=== PATIENT | female | born 1960 | race Caucasian/White ===

== ENCOUNTER → 2017-08-22 | Outpatient (CLI) | payer MEDICAID ==
--- NOTE | 2017-08-22 12:00 | US ---
EXAMINATION TYPE: US abdomen complete DATE OF EXAM: 08/22/2017 COMPARISON: NONE CLINICAL HISTORY: R10.11 Rt Upper Quad Pain. RUQ pain with nausea EXAM MEASUREMENTS: Liver Length: 15.3 cm Gallbladder Wall: 0.2 cm CBD: 0.4 cm Spleen: 10.8 cm Right Kidney: 9.3 x 3.3 x 3.7 cm Left Kidney: 10.2 x 3.9 x 4.9 cm Pancreas: tail obscured by bowel has Liver: wnl Gallbladder: tiny echogenic foci may represent polyp versus small stone, non mobile Evidence for sonographic Bautista's sign: no CBD: wnl Spleen: wnl Right Kidney: wnl Left Kidney: wnl Upper IVC: wnl Abd Aorta: wnl The liver is homogenous. The intrahepatic portion of the IVC and proximal abdominal aorta are within normal limits. Common bile duct is unremarkable. The visualized portions of the pancreas are homoge nous. The spleen is unremarkable. Kidneys are symmetric and free of hydronephrosis. No renal lesio ns are seen. IMPRESSION: 1. Nonmobile mild 3 mm dependent nonshadowing intraluminal gallbladder echogenic foci likely relate t o gallbladder polyps versus small choleliths. Annual follow-up examination is recommended for surveil kait. 2. No sonographic evidence of acute cholecystitis.
== END | disposition home or self-care (01) ==
LOC: RADUSWWP 09:48
PROVIDERS: ATTEND Family Medicine
DX: R93.5 Abnormal findings on diagnostic imaging of other abdominal regions, including retroperitoneum (principal); R10.11 Right upper quadrant pain
CPT/HCPCS: 76700

== ENCOUNTER → 2017-08-28 | Outpatient (CLI) | payer MEDICAID ==
--- NOTE | 2017-08-29 10:52 | MM ---
Reason for exam: screening (asymptomatic). Last mammogram was performed 1 year and 1 month ago. History: Patient had first child at age 36. Benign right mammotome panel of the right breast, August 12, 2008. Benign excisional biopsy of the right breast, May 21, 2001. 4 excisional biopsies of the left breast. Excisional biopsy of the right breast. Took hormonal contraceptives for 18 years. Physical Findings: A clinical breast exam by your physician is recommended on an annual basis and results should be correlated with mammographic findings. MG Screening Mammo w CAD Bilateral CC and MLO view(s) were taken. Prior study comparison: August 11, 2016, bilateral MG screening mammo w CAD. August 03, 2015, bilateral MG screening mammo w CAD. The breast tissue is extremely dense which could obscure a lesion on mammography. Stable benign calcifications. There is chronic nodularity bilaterally. There is no dominant lesion. No significant changes when compared with prior studies. ASSESSMENT: Benign, BI-RAD 2 RECOMMENDATION: Routine screening mammogram of both breasts in 1 year.
== END | disposition home or self-care (01) ==
LOC: RADMAMWWP 07:07
PROVIDERS: ATTEND Family Medicine
DX: Z12.31 Encounter for screening mammogram for malignant neoplasm of breast (principal)

== ENCOUNTER → 2019-09-01 | Outpatient (CLI) | payer MEDICAID ==
[2019-09-01 07:50] LABS: Basophils # (A) 0.1 k/uL (0-0.2); Basophils % (A) 1 %; Eosinophils # (A) 0.2 k/uL (0-0.7); Eosinophils % (A) 4 %; HCT 39.9 % (34.0-46.0); HGB 13.6 gm/dL (11.4-16.0); Lymphocytes # (A) 1.4 k/uL (1.0-4.8); Lymphocytes % (A) 29 %; MCH 30.2 pg (25.0-35.0); MCHC 34.2 g/dL (31.0-37.0); MCV 88.3 fL (80.0-100.0); Monocytes # (A) 0.3 k/uL (0-1.0); Monocytes % (A) 7 %; Neutrophils # (A) 2.9 k/uL (1.3-7.7); Neutrophils % (A) 58 %; Platelet Count 308 k/uL (150-450); RBC 4.52 m/uL (3.80-5.40); RDW 12.8 % (11.5-15.5)
[2019-09-01 08:11] LABS: ALT 26 U/L (9-52); AST 28 U/L (14-36); African American GFR (CKD) >90 (>60 ml/min/1.73 sqM); Albumin 3.7 g/dL (3.5-5.0); Alkaline Phosphatase 44 U/L (38-126); Anion Gap 3 mmol/L; Blood Urea Nitrogen 13 mg/dL (7-17); Calcium 9.5 mg/dL (8.4-10.2); Carbon Dioxide 31 mmol/L (22-30); Chloride 107 mmol/L (98-107); Cholesterol 211 mg/dL (<200); Glucose 91 mg/dL (74-99); HDL Cholesterol 69 mg/dL (40-60); LDL Cholesterol,Calculated 112 mg/dL (0-99); Non-African American GFR(CKD) >90 (>60 ml/min/1.73 sqM); Potassium 4.3 mmol/L (3.5-5.1); Sodium 141 mmol/L (137-145); Total Bilirubin 0.6 mg/dL (0.2-1.3); Total Protein 5.9 g/dL (6.3-8.2); Triglycerides 152 mg/dL (<150)
--- NOTE | 2019-09-01 08:42 | MM ---
Reason for exam: screening (asymptomatic). Last mammogram was performed 1 year ago. History: Patient had first child at age 36. Benign right mammotome panel of the right breast, August 12, 2008. Benign excisional biopsy of the right breast, May 21, 2001. 4 excisional biopsies of the left breast. Excisional biopsy of the right breast. Took hormonal contraceptives for 18 years. Physical Findings: A clinical breast exam by your physician is recommended on an annual basis and results should be correlated with mammographic findings. MG Screening Mammo w CAD Bilateral CC and MLO view(s) were taken. Prior study comparison: August 29, 2018, bilateral MG screening mammo w CAD. August 28, 2017, bilateral MG screening mammo w CAD. The breast tissue is extremely dense which could obscure a lesion on mammography. There are benign appearing round dystophic calcifications bilaterally. Previous mammotome biopsy in the right breast. There is no discrete abnormality. ASSESSMENT: Benign, BI-RAD 2 RECOMMENDATION: Routine screening mammogram of both breasts in 1 year.
[2019-09-01 09:06] LABS: T4, Free (Free Thyroxine) 0.96 ng/dL (0.78-2.19)
--- NOTE | 2019-09-01 09:47 | BD ---
EXAMINATION TYPE: Axial Bone Density DATE OF EXAM: 09/01/2019 COMPARISON: DEXA bone scan August 03, 2015. CLINICAL HISTORY: Postmenopausal female. height: 65.5 Weight: 190.7 FRAX RISK QUESTIONS: Alcohol (3 or more units per day): no Family History (Parent hip fracture): no Glucocorticoids (More than 3mos): no (Ex: prednisone, prednisolone, methylprednisolone, dexamethasone, and hydrocortisone). History of Fracture in Adulthood: no Secondary Osteoporosis: 1. Type 1 Diabetes: no 2. Hyperthyroidism: no 3. Menopause before 45: no 4. Malnutrition: no 5. Chronic liver disease: no Rheumatoid Arthritis: no Current Tobacco Use: no RISK FACTORS HISTORY OF: Family History of Osteoporosis: no Active: yes Diet low in dairy products/other sources of calcium: yes Postmenopausal woman: Lost more than 2 inches in height since high school: no MEDICATIONS: none Additional History: EXAM MEASUREMENTS: Bone mineral densitometry was performed using the [employer]. Bone mineral density as measured about the Lumbar spine is: ----- L1-L4(G/cm2): 1.220 T Score Values are as follows: ----- L2: 0.2 ----- L3: 0.7 ----- L4: 0.1 ----- L1-L4: 0.3 Bone mineral density has: increased 0.1 % since study of: 08.03.2015 Bone mineral density about the R hip (g/cm2): 1.025 Bone mineral density about the L hip (g/cm2): 1.033 T Score values are as follows: -----R Neck: -0.1 -----L Neck: 0.0 -----R Total: -0.3 -----L Total: -0.1 Bone mineral density has: decreased -0.2 % since study of: 08.03.2015 IMPRESSION: Normal (Values between +1 and -1 indicate normal bone mass). Consider repeating this study in 5 year s or sooner if there is some new clinical indication. NOTE: T-SCORE=SD OF THE YOUNG ADULT MEAN.
== END | disposition home or self-care (01) ==
LOC: RADMAMWWP 06:55
PROVIDERS: ATTEND Family Medicine
DX: Z12.31 Encounter for screening mammogram for malignant neoplasm of breast (principal); Z78.0 Asymptomatic menopausal state; Z01.419 Encounter for gynecological examination (general) (routine) without abnormal findings; Z13.29 Encounter for screening for other suspected endocrine disorder
CPT/HCPCS: 36415; 77067; 77080; 80053; 80061; 84439; 84443; 85025

== ENCOUNTER → 2020-10-12 | Outpatient (CLI) | payer MEDICAID ==
--- NOTE | 2020-10-13 13:35 | MM ---
Reason for exam: screening (asymptomatic). Last mammogram was performed 1 year and 1 month ago. History: Patient had first child at age 36. Family history of breast cancer in sister at age 67. Benign right mammotome panel of the right breast, August 12, 2008. Benign excisional biopsy of the right breast, May 21, 2001. 4 excisional biopsies of the left breast. Excisional biopsy of the right breast. Took hormonal contraceptives for 18 years. Physical Findings: A clinical breast exam by your physician is recommended on an annual basis and results should be correlated with mammographic findings. MG Screening Mammo w CAD Bilateral CC and MLO view(s) were taken. Prior study comparison: September 01, 2019, bilateral MG screening mammo w CAD. August 29, 2018, bilateral MG screening mammo w CAD. The breast tissue is extremely dense which could obscure a lesion on mammography. Finding #1: Stable architectural distortion in the inner quadrant, posterior position of the right breast consistent with known excision changes and left middle posterior central position. Finding #2: There are typically benign dystrophic, round calcifications in both breasts. Previous mammotome biopsy in the right breast. There is no discrete abnormality. ASSESSMENT: Benign, BI-RAD 2 RECOMMENDATION: Routine screening mammogram of both breasts in 1 year.
== END | disposition home or self-care (01) ==
LOC: RADMAMWWP 07:33
PROVIDERS: ATTEND Family Medicine
DX: Z12.31 Encounter for screening mammogram for malignant neoplasm of breast (principal)
CPT/HCPCS: 77067

== ENCOUNTER → 2021-10-13 | Outpatient (CLI) | payer MEDICAID ==
--- NOTE | 2021-10-17 12:21 | MM ---
Reason for exam: screening (asymptomatic). Last mammogram was performed 1 year ago. History: Patient had first child at age 36. Family history of breast cancer in sister at age 67. Benign right mammotome panel of the right breast, August 12, 2008. Benign excisional biopsy of the right breast, May 21, 2001. 4 excisional biopsies of the left breast. Excisional biopsy of the right breast. Took hormonal contraceptives for 18 years. Physical Findings: A clinical breast exam by your physician is recommended on an annual basis and results should be correlated with mammographic findings. MG 3D Screening Mammo W/Cad Bilateral CC and MLO view(s) were taken. Prior study comparison: October 12, 2020, bilateral MG screening mammo w CAD. September 01, 2019, bilateral MG screening mammo w CAD. The breast tissue is extremely dense which could obscure a lesion on mammography. There are benign appearing round calcifications bilaterally. Previous mammotome biopsy in the right breast. Asymmetric breast tissue left upper aspect, stable. There is no discrete abnormality. ASSESSMENT: Benign, BI-RAD 2 RECOMMENDATION: Routine screening mammogram of both breasts in 1 year.
== END | disposition home or self-care (01) ==
LOC: RADMAMWWP 16:00
PROVIDERS: ATTEND Family Medicine
DX: Z12.31 Encounter for screening mammogram for malignant neoplasm of breast (principal); Z80.3 Family history of malignant neoplasm of breast
CPT/HCPCS: 77063; 77067

== ENCOUNTER → 2021-12-05 | Outpatient (CLI) | payer OTHER ==
--- NOTE | 2021-12-05 11:56 | XR ---
Right ankle and right foot HISTORY: Trauma 2 weeks prior and pain, S93.401A S93.601A 3 views of the right foot, 3 views the right ankle Bone mineralization, joint spaces and alignment are maintained within the foot. Multiple ossific densities are present distal to the medial malleolus. There is soft tissue swelling present. Alignment is maintained. There is a plantar calcaneal spur. Enthesophyte present at the inse rtion of the Achilles tendon. There is a small ossific density at the level of the talar neck. IMPRESSION: Correlate for avulsion injury at the medial malleolus, possible chip fracture at the melany r neck. Soft tissue swelling.
== END | disposition home or self-care (01) ==
LOC: RADXRMAIN 11:31
PROVIDERS: ATTEND Emergency Medicine
DX: S99.911A Unspecified injury of right ankle, initial encounter (principal); S99.921A Unspecified injury of right foot, initial encounter; M25.571 Pain in right ankle and joints of right foot; M79.671 Pain in right foot

== ENCOUNTER → 2022-10-16 | Outpatient (CLI) | payer MEDICAID | END | disposition home or self-care (01) | LOC: LABWHC1 08:37 | PROVIDERS: ATTEND Family Medicine | DX: Z53.9 Procedure and treatment not carried out, unspecified reason (principal) ==

== ENCOUNTER → 2022-10-16 | Outpatient (CLI) | payer MEDICAID ==
--- NOTE | 2022-10-16 08:51 | BD ---
EXAMINATION TYPE: Axial Bone Density DATE OF EXAM: 10/16/2022 COMPARISON: 09.01.2019 CLINICAL HISTORY: 61 years year old Female. ICD-10 CODE: Z78.0 POST MENOPAUSAL Height: 65.2 Weight: 205 FRAX RISK QUESTIONS: History of Fracture in Adulthood: YES, 2021 3. Menopause before 45: UNKNOWN RISK FACTORS HISTORY OF: RT ANKLE, 2021, AVULSION FX Postmenopausal woman: ABLATION 2005 UNKNOWN MENOPAUSAL STATE Hyperparathyroidism: NO Adrenal Insufficiency: NO MEDICATIONS: Additional Medications: NOTHING TO NOTE Additional History: NOTHING ADDITIONAL TO NOTE EXAM MEASUREMENTS: Bone mineral densitometry was performed using the [employer] System. Bone mineral density as measured about the Lumbar spine is: ----- L1-L4(G/cm2): 1.199 T Score Values are as follows: ----- L1: 0.2 ----- L2: -0.5 ----- L3: 0.4 ----- L4: 0.3 ----- L1-L4: 0.2 Bone mineral density has: Decreased -1.7% since study of: 09.01.2019 Bone mineral density about the R hip (g/cm2): 0.977 Bone mineral density about the L hip (g/cm2): 1.000 T Score values are as follows: -----R Neck: -0.2 -----L Neck: -0.6 -----R Total: -0.2 -----L Total: -0.1 Bone mineral density has: Increased 0.2% since study of: 09.01.2019 FRAX%s: The graph provided illustrates a 10.7% chance for a major osteoporotic fx and a 0.4% chance f or the hips probability for fx in 10 years time. IMPRESSION: Normal (Values between +1 and -1 indicate normal bone mass). Consider repeating this study in 5 year s or sooner if there is some new clinical indication. NOTE: T-SCORE=SD OF THE YOUNG ADULT MEAN.
[2022-10-16 14:52] LABS: Basophils # (A) 0.07 X 10*3/uL (0.00-0.10); Basophils % (A) 1.3 %; Eosinophils # (A) 0.13 X 10*3/uL (0.04-0.35); Eosinophils % (A) 2.4 %; HCT 42.7 % (37.2-46.3); HGB 13.7 g/dL (12.0-15.0); Immature Grans, Automated 0.4 %; Lymphocytes # (A) 1.31 X 10*3/uL (0.90-5.00); Lymphocytes % (A) 24.5 %; MCH 28.6 pg (27.0-32.0); MCHC 32.1 g/dL (32.0-37.0); MCV 89.1 fL (80.0-97.0); Mean Platelet Volume 10.4 fL (9.5-12.2); Monocytes # (A) 0.47 X 10*3/uL (0.20-1.00); Monocytes % (A) 8.8 %; NRBC Per 100 WBC 0 /100 WBCS (0.0-0.0); Neutrophils # (A) 3.34 X 10*3/uL (1.80-7.70); Neutrophils % (A) 62.6 %; Platelet Count 255 X 10*3/uL (140-440); RBC 4.79 X 10*6/uL (4.10-5.20); RDW 13.3 % (11.5-14.5); WBC 5.34 X 10*3/uL (4.50-10.00)
[2022-10-16 16:29] LABS: ALT 23 U/L (8-44); AST 24 U/L (13-35); African American GFR (CKD) 92.6 (60.0-200.0); Albumin 4.5 g/dL (3.8-4.9); Albumin/Globulin Ratio 2.62 (1.60-3.17); Alkaline Phosphatase 70 U/L (41-126); BUN/Creat Ratio 12.76 Ratio (12.00-20.00); Blood Urea Nitrogen 10.3 mg/dL (9.0-27.0); Calcium 9.6 mg/dL (8.7-10.3); Carbon Dioxide 28.1 mmol/L (20.0-27.5); Chloride 103 mmol/L (96-109); Globulin 1.7 g/dL (1.6-3.3); Glucose 96 mg/dL (70-110); Non-African American GFR(CKD) 79.9 (60.0-200.0); Potassium 4.9 mmol/L (3.5-5.5); Sodium 142 mmol/L (135-145); Total Protein 6.2 g/dL (6.2-8.2)
[2022-10-16 16:30] LABS: Chol/HDL Ratio 5.34 Ratio; LDL Cholesterol,Calculated 175.4 mg/dL (0.0-131.0)
--- NOTE | 2022-10-17 08:49 | MM ---
Reason for Exam: Screening (asymptomatic). Last screening mammogram was performed 12 month(s) ago. Patient History: Menarche at age 12. First Full-Term at age 36. Late child-bearing (after 30). Patient used Hormonal Contraceptives for 18 years. Excisional Biopsy on the Right side. Excisional Biopsy on the Left side. Excisional Biopsy on the Left side. Excisional Biopsy on the Left side. Excisional Biopsy on the Left side. 08/12/2008, Benign Core Biopsy on the right side. 05/21/2001, Benign Excisional Biopsy on the right side. Sister had breast cancer, age 67. Risk Values: Karis 5 year model risk: 4.6%. NCI Lifetime model risk: 22.8%. Prior Study Comparison: 09/01/2019 Bilateral Screening Mammogram, [facility]. 10/12/2020 Bilateral Screening Mammogram, [facility]. 10/13/2021 Bilateral Screening Mammogram, [facility]. Tissue Density: The breast tissue is heterogeneously dense. This may lower the sensitivity of mammography. Findings: Analyzed By CAD. There is no suspicious group of microcalcifications within the right breast. Increased number of loosely grouped calcifications within the central left breast anterior to middle depth. Slightly more prominent architectural distortion within the cyst central right breast posterior depth and central left breast posterior depth on the CC view. Overall Assessment: Incomplete: need additional imaging evaluation, BI-RAD 0 Management: Diagnostic Mammogram of both breasts. A clinical breast exam by your physician is recommended on an annual basis and results should be correlated with mammographic findings. [facility] will attempt to contact patient to return for supplemental views and ultrasound if indicated. Electronically signed and approved by: Yordy Avelar D.O.
== END | disposition home or self-care (01) ==
LOC: RADMAMWWP 07:49
PROVIDERS: ATTEND Family Medicine
DX: Z12.31 Encounter for screening mammogram for malignant neoplasm of breast (principal); Z78.0 Asymptomatic menopausal state; Z80.3 Family history of malignant neoplasm of breast; Z98.890 Other specified postprocedural states
CPT/HCPCS: 77063; 77067; 77080; 80053; 80061; 84443; 85025

== ENCOUNTER → 2022-10-18 | Outpatient (CLI) | payer MEDICAID ==
--- NOTE | 2022-10-18 08:20 | MM ---
Reason for Exam: Additional evaluation requested from abnormal screening. Last screening mammogram was performed less than 1 month ago. Patient History: Menarche at age 12. First Full-Term at age 36. Late child-bearing (after 30). Patient has history of breast feeding. Patient used Hormonal Contraceptives for 18 years. Excisional Biopsy on the Right side. Excisional Biopsy on the Left side. Excisional Biopsy on the Left side. Excisional Biopsy on the Left side. Excisional Biopsy on the Left side. 08/12/2008, Benign Core Biopsy on the right side. 05/21/2001, Benign Excisional Biopsy on the right side. Maternal cousin had breast cancer under age 50. Sister had breast cancer, age 67. Risk Values: Karis 5 year model risk: 4.6%. NCI Lifetime model risk: 22.8%. Prior Study Comparison: 08/28/2017 Bilateral Screening Mammogram, [facility]. 08/29/2018 Bilateral Screening Mammogram, [facility]. 09/01/2019 Bilateral Screening Mammogram, [facility]. 10/12/2020 Bilateral Screening Mammogram, [facility]. 10/13/2021 Bilateral Screening Mammogram, [facility]. 10/16/2022 Bilateral MG 3D screening mammo w/cad, [facility]. Tissue Density: The breast tissue is heterogeneously dense. This may lower the sensitivity of mammography. Findings: Analyzed By CAD. Grouped calcifications are seen in the left breast 5.0 cm at middle depth posterior nipple line. Distortions in the bilateral breasts compress out and are felt to be related to prior procedural/surgical intervention. Overall Assessment: Suspicious, BI-RAD 4 Management: Stereotactic Core Biopsy of the left breast. A clinical breast exam by your physician is recommended on an annual basis and results should be correlated with mammographic findings. This exam should not preclude additional follow-up of suspicious palpable abnormalities. Results were given to the patient verbally at the time of exam. Electronically signed and approved by: Perfecto Lai DO
== END | disposition home or self-care (01) ==
LOC: RADMAMWWP 07:31
PROVIDERS: ATTEND Family Medicine
DX: R92.8 Other abnormal and inconclusive findings on diagnostic imaging of breast (principal); Z80.3 Family history of malignant neoplasm of breast
CPT/HCPCS: 77062; 77066

== ENCOUNTER 2023-01-08 06:39 | Day surgery (SDC) | payer MEDICAID ==
[~2023-01-08 06:39] MED LIST: Pre Op ABX Message 1 EACH MISC MISCELLANE ONE
[2023-01-08] MEDS ORDERED: DEXAMETHASONE SOD PHOSPHATE 4 MG/ML 1 ML VIAL IV ONE (07:03)
[2023-01-08] MEDS ORDERED: LACTATED RINGERS 1,000 ML IV SCH (07:03)
[2023-01-08] MEDS ORDERED: LIDOCAINE 1% (10MG/ML) FOR IV START INTRADERMA PRN (07:03)
[2023-01-08] MEDS ORDERED: HYDROmorphone 0.5 MG/0.5 ML SYRINGE IVP PRN (07:03)
[2023-01-08] MEDS ORDERED: ONDANSETRON 4 MG/2 ML VIAL IVP ONE (07:03)
--- NOTE | 2023-01-08 07:10 | P.GSHP ---
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 Patient was found have DCIS after mammogram showed calcifications. Family history of breast cancer in her sister. She was seen by oncology. Genetic studies showed a variant of unknown significance. It today for elective surgery in the form of lumpectomy. Past Medical History Past Medical History: Cancer Additional Past Medical History / Comment(s): Restless leg syndrome, Over active bladder History of Any Multi-Drug Resistant Organisms: None Reported Past Surgical History: Section, Uterine Ablation Additional Past Surgical History / Comment(s): fibroadenomas from breast,rt knee arthrscopy Past Anesthesia/Blood Transfusion Reactions: No Reported Reaction Smoking Status: Never smoker - Past Family History Sister(s) Family Medical History: Cancer Additional Family Medical History / Comment(s): breast Medications and Allergies Home Medications Medication Instructions Recorded Confirmed Type rOPINIRole HCL [Requip] 0.5 mg PO DAILY 10/19/22 01/04/23 History ALPRAZolam [Xanax] 0.25 mg PO HS PRN 01/04/23 01/04/23 History Allergies Allergy/AdvReac Type Severity Reaction Status Date / Time No Known Allergies Allergy Verified 01/04/23 15:19 Surgical - Exam Physical exam: General: Well-developed, well-nourished HEENT: Normocephalic, sclerae nonicteric Right breast: Previous scars noted, no masses, no adenopathy Left breast: Previous scars noted, no masses, no adenopathy Abdomen: Nontender, nondistended Extremities: No edema Neuro: Alert and oriented Assessment and Plan (1) Ductal carcinoma in situ of left breast Narrative/Plan: 8-year-old female with recent diagnosis of high-grade DCIS left breast. We'll proceed with left breast wire localization lumpectomy with sentinel lymph node biopsy and injection. Risks of bleeding, infection, scarring, possible need for further surgery, recurrence, seroma, nerve injury, numbness reviewed. She understands and wishes to proceed. Current Visit: Yes Status: Acute Code(s): D05.12 - INTRADUCTAL CARCINOMA IN SITU OF LEFT BREAST SNOMED Code(s): 850824739
[2023-01-08] MEDS ORDERED: ALPRAZolam 0.25 MG TAB ONE (07:35)
[2023-01-08 07:44] VITALS: RESP 16
[2023-01-08] MEDS ORDERED: LIDOCAINE 1% INJ 10MG/ML (20 ML MDV) SQ ONE (08:12)
[2023-01-08] MEDS ORDERED: HEPARIN SODIUM,PORCINE/PF 5,000 UNIT/0.5 ML SYRINGE SQ STA (08:17)
[2023-01-08] MEDS ORDERED: ONDANSETRON 4 MG/2 ML VIAL ONE (08:57)
[2023-01-08] MEDS ORDERED: KETOROLAC 15 MG/ML 1 ML VIAL ONE (09:37)
[2023-01-08] MEDS ORDERED: LIDOCAINE 2% INJ 20 MG/ML (2 ML VIAL) ONE (09:37)
[2023-01-08] MEDS ORDERED: PROPOFOL 10 MG/ML 20 ML VIAL IV ONE (09:37)
[2023-01-08] MEDS ORDERED: fentaNYL (PF) 50 MCG/ML 2 ML AMP ONE (09:37)
[2023-01-08] MEDS ORDERED: MIDAZOLAM 2 MG/2 ML VIAL ONE (09:37)
[2023-01-08] MEDS ORDERED: METHYLENE BLUE 50 MG/10 ML AMPUL MISCELLANE ONE (09:41)
[2023-01-08] MEDS ORDERED: BUPIVACAINE (PF) 0.25% 30 ML VIAL SQ ONE (09:41)
[2023-01-08] MEDS ORDERED: LACTATED RINGERS 1,000 ML IV ONE (11:12)
[2023-01-08] MEDS ORDERED: NALOXONE 0.4 MG/ML 1 ML VIAL IV PRN (11:19)
[2023-01-08] MEDS ORDERED: HYDROcodone/APAP 5-325MG 1 EACH TAB PO PRN (11:19)
--- NOTE | 2023-01-08 11:21 | P.NAPBC ---
NAPBC Queries - NAPBC Queries Was patient's case review presented at [facility] tumor board? If no, comment.: Yes Was patient's pathology reviewed at [facility]? If no, comment.: Yes Was breast conservation surgery offered? If no, comment.: Yes Was sentinel node biopsy offered? If no, comment.: Yes Was diagnosis confirmed by percutaneous core biopsy? If no, comment.: Yes Is patient mastectomy patient?: No Was a preop referral to reconstructive surgeon offered?: Yes Clinical Stage: 0
--- NOTE | 2023-01-08 11:24 | P.OP ---
Date of Procedure: 01/08/23 Procedure(s) Performed: PREOPERATIVE DIAGNOSIS: Left breast cancer POSTOPERATIVE DIAGNOSIS: Same PROCEDURE: Left Breast wire localization lumpectomy with sentinel lymph node biopsy SURGEON: Andrea EBL: Minimal ANESTHESIA: General COMPLICATIONS: None OPERATIVE PROCEDURE: Patient was placed on the operating room table in the supine position. 2 mL of methylene blue was injected into the subareolar space. The breast was then massaged for 5 minutes. The breast was prepped and draped in usual sterile fashion. The left axilla was addressed at that time. The hot spot in the left axilla was identified. A small curvilinear incision was made using the scalpel. Dissection down through the subcutaneous tissues took place using electrocautery. Using the neoprobe I identified a total of 3 sentinel lymph nodes. 2 of these were blue in color. These had benign exam characteristics. These were all removed and sent to pathology for permanent sectioning. The surgical site was inspected and no bleeding was seen. The subcutaneous tissues were closed using 3-0 Vicryl sutures. The skin was closed using 4-0 Monocryl sutures. The wire entrance sites were then addressed. Both wires were entering the breast at the 12 o'clock position directed inferiorly. A periareolar incision was then made and dissection through the subcutaneous tissues took place until we reached the wires entering the subcutaneous tissue. The wires were then brought out through this incision site. A generous lumpectomy around the wires was then performed. As I was dissecting inferiorly and medially I came close I felt to the previous core site. More tissue was taken around this and a single 3-0 Vicryl stitch was later used to reapproximate that flap of tissue. As I was palpating the specimen I felt we were close to the medial and inferior location. I removed an additional portion of tissue as a new margin in the medial inferior location this was painted the appropriate to colors on the new margin side. The original lumpectomy was then painted 6 different colors however the posterior and superior colors were interchanged. Clips were used to identify the lumpectomy cavity. The clip was confirmed to be within the lumpectomy specimen by radiology. The subcutaneous tissues were closed using 3-0 Vicryl sutures. The skin was closed using a running 4-0 Monocryl stitch. Skin glue was then applied. DISPOSITION: Stable to recovery room
[2023-01-08 11:32] VITALS: TEMP 97.8
[2023-01-08] MEDS ORDERED: HYDROcodone/APAP 5-325MG 1 EACH TAB PO ONE (12:25)
[2023-01-08 13:04] VITALS: BP 148/82; PULSE 66
--- NOTE | 2023-01-08 14:48 | NM ---
EXAMINATION TYPE: NM sentinel node injection DATE OF EXAM: 01/08/2023 COMPARISON: NONE HISTORY: Left breast carcinoma TECHNIQUE AND FINDINGS: The procedure of sentinel lymph node injection was explained to the patient. The benefits, alternatives, and risks were discussed. An informed consent was then obtained. Overlying skin is cleaned with sterile alcohol. Following this, 505 uCi Tc99m Tilmanocept was inject ed in the upper outer aspect of the left nipple intradermally. The patient tolerated the procedure well without any immediate complication. The patient was kept in the radiology department for short stay after the procedure and then taken to surgery for surgical p rocedure what is presumed intraoperative gamma probe will be used for sentinel lymph node detection. IMPRESSION: Left breast radiotracer injection for sentinel node localization as above.
--- NOTE | 2023-01-18 14:34 | MM ---
Pathology Description: Approach: CC FA Needle Type: 7 cm Kopan Informed consent was obtained and all the patient's questions were answered. The lesion in question was localized mammographically. The standard sterile technique was utilized, as well as appropriate local anesthesia with 1% Lidocaine. Localization needle followed by placement of a 2 guidewires was performed under mammographic guidance. Verification images demonstrate appropriate deployment of the guidewires. The patient tolerated the procedure well and left the department in stable condition. Specimen radiograph demonstrates the clip and calcifications in question to reside within the specimen. IMPRESSION: Successful needle localization and open biopsy left breast with pathology results pending. Pathology Results: Result: Malignant, Invasive ductal carcinoma. A. LEFT BREAST, LUMPECTOMY: Invasive moderately differentiated ductal carcinoma (grade 2) and high grade ductal carcinoma in situ (DCIS), margins negative. DCIS is less than 1 mm from the inferior margin multifocally and focally 1 mm from the inferior/medial margin. See Surgical Pathology Cancer Case Summary and Comment. B. LEFT AXILLARY SENTINEL LYMPH NODE: Three lymph nodes negative for metatstasis. CK7 and THAD immunoperoxidase stains performed on blocks B1 and B2 are confirmatory (controls appropriate). C. LEFT BREAST NEW MEDIAL MARGIN AND INFERIOR, EXCISION: Benign breast with fibrocystic changes. Overall Assessment: Malignant Management: Surgical Consultation of the left breast. Electronically signed and approved by: Sriram Pérez M.D. Radiologis
== END 2023-01-08 13:10 | disposition home or self-care (01) ==
LOC: OR 06:39
PROVIDERS: ATTEND Surgery
DX: D05.12 Intraductal carcinoma in situ of left breast (principal); N60.12 Diffuse cystic mastopathy of left breast; G25.81 Restless legs syndrome; E78.5 Hyperlipidemia, unspecified; F41.9 Anxiety disorder, unspecified; Z80.3 Family history of malignant neoplasm of breast; Z86.018 Personal history of other benign neoplasm; Z98.891 History of uterine scar from previous surgery; Z79.899 Other long term (current) drug therapy; Z82.49 Family history of ischemic heart disease and other diseases of the circulatory system; Z98.890 Other specified postprocedural states
CPT/HCPCS: 19301; 38525; 38900; 88342; 88307; 88341; 76098; 19281; 38792; C1819; A9520; J2250; J1100; J0690; J2405; J2001 ×2; J3010; J1885; J2704; Q9968; J1170; J1644

== ENCOUNTER → 2023-02-09 | Outpatient (CLI) | payer MEDICAID ==
--- NOTE | 2023-02-09 12:01 | CA ---
Transthoracic Echo Report Name: Yamilex Cervantes Age: 62 Gender: F : 1960 Exam Date: 02/09/2023 09:04 Exam Location: [facility] Ht (in): 65 Wt (lb): 208 Ordering Physician: Evgeny Thorpe MD Attending/Referring Phys: Donnell Mendez MD Call Worker Person Cindy Ferreira RDCS Procedure CPT: Indications: Z01.818 Cardiac Hx: Technical Quality: Fair Contrast 1: Total Dose (mL): Contrast 2: Total Dose (mL): MEASUREMENTS (Male / Female) Normal Values 2D ECHO LV Diastolic Diameter PLAX 3.5 cm 4.2 - 5.9 / 3.9 - 5.3 cm LV Systolic Diameter PLAX 1.8 cm IVS Diastolic Thickness 1.4 cm 0.6 - 1.0 / 0.6 - 0.9 cm LVPW Diastolic Thickness 1.1 cm 0.6 - 1.0 / 0.6 - 0.9 cm LV Relative Wall Thickness 0.7 RV Internal Dim ED PLAX 3.1 cm LA Volume 33.0 cm??? 18 - 58 / 22 - 52 cm??? M-MODE Aortic Root Diameter MM 2.7 cm LA Systolic Diameter MM 3.1 cm LA Ao Ratio MM 1.1 AV Cusp Separation MM 1.6 cm DOPPLER AV Peak Velocity 117.5 cm/s AV Peak Gradient 5.5 mmHg AV Mean Velocity 82.1 cm/s AV Mean Gradient 3.1 mmHg AV Velocity Time Integral 25.9 cm LVOT Peak Velocity 110.8 cm/s LVOT Peak Gradient 4.9 mmHg LVOT Velocity Time Integral 29.6 cm MV Area PHT 3.2 cm??? Mitral E Point Velocity 105.1 cm/s Mitral A Point Velocity 85.4 cm/s Mitral E to A Ratio 1.2 MV Deceleration Time 240.7 ms MV E' Velocity 6.5 cm/s Mitral E to MV E' Ratio 16.1 TR Peak Velocity 264.4 cm/s TR Peak Gradient 28.0 mmHg Right Ventricular Systolic Press 32.3 mmHg FINDINGS Left Ventricle Mildly increased left ventricular wall thickness. Left ventricular cavity size normal. Normal left ventricular systolic function with no obvious regional wall motion abnormalities. Left ventricular ejection fraction is estimated at 55-60 %. Normal left ventricular diastolic filling pattern. Right Ventricle Normal right ventricular size and function. Right ventricular systolic pressure within normal limits. Right Atrium Normal right atrial size. Left Atrium Normal left atrial size. Mitral Valve Structurally normal mitral valve. No mitral stenosis, regurgitation or prolapse. Aortic Valve Trileaflet aortic valve. No aortic valve stenosis or regurgitation. Tricuspid Valve Structurally normal tricuspid valve. Mild tricuspid regurgitation. Pulmonic Valve Structurally normal pulmonic valve. Trace pulmonic regurgitation. Pericardium No pericardial effusion. Aorta Normal size aortic root and proximal ascending aorta. CONCLUSIONS Left ventricular ejection fraction 55-60% Mild increased left ventricular wall thickness RVSP 32 No mitral regurgitation Mild tricuspid regurgitation No pericardial effusion Previewed by: Dr. Kris Dyson DO (Electronically Signed) Final Date: 09 Feb 2023 12:00
== END | disposition home or self-care (01) ==
LOC: RADECHMAIN 08:51
PROVIDERS: ATTEND Internal Medicine
DX: Z01.818 Encounter for other preprocedural examination (principal); I36.1 Nonrheumatic tricuspid (valve) insufficiency; D05.12 Intraductal carcinoma in situ of left breast; Z71.3 Dietary counseling and surveillance
CPT/HCPCS: 93306

== ENCOUNTER 2023-03-02 09:17 | Day surgery (SDC) | payer MEDICAID ==
[2023-03-02 09:40] VITALS: BP 186/81; PULSE 70; RESP 16; TEMP 97.4
[2023-03-02 10:07] LABS: African American GFR (CKD) >90 (>60 ml/min/1.73 sqM); Anion Gap 8 mmol/L; Blood Urea Nitrogen 15 mg/dL (7-17); Calcium 8.9 mg/dL (8.4-10.2); Carbon Dioxide 27 mmol/L (22-30); Chloride 107 mmol/L (98-107); Glucose 96 mg/dL (74-99); Non-African American GFR(CKD) >90 (>60 ml/min/1.73 sqM); Potassium 3.3 mmol/L (3.5-5.1); Sodium 142 mmol/L (137-145)
--- NOTE | 2023-03-02 11:25 | IR ---
PICC LINE PLACEMENT: HISTORY: Infection requiring long-term antibiotic therapy PROCEDURE: Ultrasound and fluoroscopic guidance of PICC line placement. COMPLICATIONS: None ANESTHESIA: 1. 1% Lidocaine locally. FINDINGS/TECHNIQUE: The procedure was explained to the patient. The risks, complications, benefits and alternatives were discussed and any questions were answered. Informed consent was obtained. The patient was placed supine on the fluoroscopic table and prepped and draped in the usual sterile fash ion. Utilizing a 21 gauge needle and sonographic and fluoroscopic guidance, access in the right bas ilic vein was achieved and there is placement of a 0.018 guidewire. The vein is patent. A 4-F sheat h was placed over the guidewire. The guidewire and dilator were removed and a 4-F. PICC line was kinga leonardo through the sheath with the tip at the level of the SVC. The sheath was removed, the catheter wa s flushed and sutured into position. The patient was stable throughout the procedure and remained st able upon discharge from the Department of Radiology. The vein puncture was patent under ultrasound. A meehan scale image was obtained to document patency of the vein punctured. All elements of the maximal barrier technique were utilized. FLUOROSCOPY TIME: DAP 0.026Gy cm2 IMPRESSION: Successful PICC line placement under ultrasound and fluoroscopic guidance.
== END 2023-03-02 10:51 | disposition home or self-care (01) ==
LOC: CATHCVL 09:17
PROVIDERS: ATTEND Radiology Diagnostic Radiology
DX: Z45.2 Encounter for adjustment and management of vascular access device (principal); Z79.899 Other long term (current) drug therapy; Z98.890 Other specified postprocedural states; Z80.3 Family history of malignant neoplasm of breast
CPT/HCPCS: 36573; 80048; C1751; C1769

== ENCOUNTER → 2023-04-27 | Outpatient (CLI) | payer MEDICAID ==
--- NOTE | 2023-04-27 17:36 | CA ---
Transthoracic Echo Report Name: Yamilex Cervantes Age: 62 Gender: F : 1960 Exam Date: 04/27/2023 14:14 Exam Location: [facility] Ht (in): 66 Wt (lb): 205 Ordering Physician: Evgeny Thorpe MD Attending/Referring Phys: Donnell Mendez MD Hand Clerical Verifier Lisa Wallace RDCS Procedure CPT: Indications: Z01.818 Cardiac Hx: Technical Quality: Contrast 1: Total Dose (mL): Contrast 2: Total Dose (mL): MEASUREMENTS (Male / Female) Normal Values 2D ECHO LV Diastolic Diameter PLAX 4.6 cm 4.2 - 5.9 / 3.9 - 5.3 cm LV Systolic Diameter PLAX 2.9 cm IVS Diastolic Thickness 1.3 cm 0.6 - 1.0 / 0.6 - 0.9 cm LVPW Diastolic Thickness 1.2 cm 0.6 - 1.0 / 0.6 - 0.9 cm LV Relative Wall Thickness 0.5 RV Internal Dim ED PLAX 3.3 cm LA Systolic Diameter LX 3.5 cm 3.0 - 4.0 / 2.7 - 3.8 cm LV Diastolic Volume MOD BP 93.3 cm??? 67 - 155 / 56 - 104 cm??? LV Systolic Volume MOD BP 38.5 cm??? 22 - 58 / 19 - 49 cm??? LV Ejection Fraction MOD BP 58.8 % >= 55 % LV Diastolic Volume MOD 4C 91.4 cm??? LV Systolic Volume MOD 4C 41.3 cm??? LV Ejection Fraction MOD 4C 54.8 % LV Diastolic Length 4C 7.9 cm LV Systolic Length 4C 7.0 cm LV Diastolic Volume MOD 2C 91.1 cm??? LV Systolic Volume MOD 2C 37.7 cm??? LV Ejection Fraction MOD 2C 58.6 % LV Diastolic Length 2C 8.3 cm LV Systolic Length 2C 6.7 cm LA Volume 59.2 cm??? 18 - 58 / 22 - 52 cm??? M-MODE Aortic Root Diameter MM 3.5 cm MV E Point Septal Separation 0.4 cm AV Cusp Separation MM 2.1 cm DOPPLER AV Peak Velocity 179.1 cm/s AV Peak Gradient 12.8 mmHg MV Area PHT 3.8 cm??? Mitral E Point Velocity 137.2 cm/s Mitral A Point Velocity 102.3 cm/s Mitral E to A Ratio 1.3 MV Deceleration Time 199.2 ms TR Peak Velocity 278.8 cm/s TR Peak Gradient 31.1 mmHg Right Ventricular Systolic Press 36.0 mmHg FINDINGS Left Ventricle Left ventricular ejection fraction is estimated at 55-60 %. Left ventricular cavity size normal. Normal left ventricular wall motion. Moderately increased left ventricular wall thickness. Right Ventricle Mild right ventricular dilatation. Mild pulmonary hypertension. Normal RV function Right Atrium Normal right atrial size. Left Atrium Mildly increased left atrial volume. Mitral Valve Structurally normal mitral valve. mild mitral regurgitation. Aortic Valve Trileaflet aortic valve. No aortic valve stenosis or regurgitation. Tricuspid Valve Structurally normal tricuspid valve. Mild tricuspid regurgitation. Pulmonic Valve Pulmonic valve not well visualized. Pericardium Normal pericardium. No pericardial effusion. Aorta Normal size aortic root and proximal ascending aorta. CONCLUSIONS 1. Normal left ventricular size and systolic function 2. Mild mitral and tricuspid regurgitation with mild pulmonary hypertension Previewed by: Dr. Florina Rowe MD (Electronically Signed) Final Date: 27 April 2023 17:35
== END | disposition home or self-care (01) ==
LOC: RADECHMAIN 14:07
PROVIDERS: ATTEND Internal Medicine
DX: Z01.818 Encounter for other preprocedural examination (principal); I08.1 Rheumatic disorders of both mitral and tricuspid valves; I27.0 Primary pulmonary hypertension
CPT/HCPCS: 93306

== ENCOUNTER → 2023-07-24 | Outpatient (CLI) | payer MEDICAID ==
--- NOTE | 2023-07-25 09:43 | CA ---
Transthoracic Echo Report Name: Yamilex Cervantes Age: 62 Gender: F : 1960 Exam Date: 07/24/2023 11:35 Exam Location: [facility] Ht (in): 65 Wt (lb): 200 Ordering Physician: Evgeny Thorpe MD Attending/Referring Phys: Air Brakes Inspector Cindy Ferreira RDCS Procedure CPT: Indications: Z01.818 CHEMO Cardiac Hx: Technical Quality: Fair Contrast 1: Total Dose (mL): Contrast 2: Total Dose (mL): MEASUREMENTS (Male / Female) Normal Values 2D ECHO LV Diastolic Diameter PLAX 4.1 cm 4.2 - 5.9 / 3.9 - 5.3 cm LV Systolic Diameter PLAX 2.2 cm IVS Diastolic Thickness 1.6 cm 0.6 - 1.0 / 0.6 - 0.9 cm LVPW Diastolic Thickness 0.9 cm 0.6 - 1.0 / 0.6 - 0.9 cm LV Relative Wall Thickness 0.6 RV Internal Dim ED PLAX 3.2 cm LA Volume 56.1 cm??? 18 - 58 / 22 - 52 cm??? LA Volume Index 27.1 cm???/m??? 16 - 28 cm???/m??? M-MODE Aortic Root Diameter MM 2.4 cm LA Systolic Diameter MM 3.5 cm LA Ao Ratio MM 1.5 AV Cusp Separation MM 1.8 cm DOPPLER AV Peak Velocity 98.1 cm/s AV Peak Gradient 3.9 mmHg AV Mean Velocity 73.8 cm/s AV Mean Gradient 2.4 mmHg AV Velocity Time Integral 25.6 cm LVOT Peak Velocity 85.5 cm/s LVOT Peak Gradient 2.9 mmHg LVOT Velocity Time Integral 23.7 cm Mitral E Point Velocity 105.1 cm/s Mitral A Point Velocity 64.3 cm/s Mitral E to A Ratio 1.6 MV E' Velocity 9.8 cm/s Mitral E to MV E' Ratio 10.7 TR Peak Velocity 215.1 cm/s TR Peak Gradient 18.5 mmHg Right Ventricular Systolic Press 22.7 mmHg FINDINGS Left Ventricle Mildly increased left ventricular wall thickness. Left ventricular cavity size normal. Normal left ventricular systolic function with no obvious regional wall motion abnormalities. Left ventricular ejection fraction is estimated at 55-60 %. Right Ventricle Normal right ventricular size and function. Right ventricular systolic pressure within normal limits. Right Atrium Normal right atrial size. Left Atrium Mildly increased left atrial volume. Mitral Valve Structurally normal mitral valve. Trace to mild mitral regurgitation. Mild mitral valve leaflet thickening Aortic Valve Trileaflet aortic valve. No aortic valve stenosis or regurgitation. Tricuspid Valve Structurally normal tricuspid valve. Mild tricuspid regurgitation. Pulmonic Valve Trace pulmonic regurgitation. Pericardium No pericardial effusion. Aorta Normal size aortic root and proximal ascending aorta. CONCLUSIONS Left ventricular ejection fraction is estimated at 55-60 %. No obvious regional wall motion abnormalities. Mildly increased left ventricular wall thicknes. Mild mitral valve leaflet thickening. RVSP estimated at 22 mmHg No other significant valvular dysfunction Previewed by: Dr Leroy Busby (Electronically Signed) Final Date: 25 July 2023 09:42
== END | disposition home or self-care (01) ==
LOC: RADECHMAIN 11:04
PROVIDERS: ATTEND Internal Medicine
DX: Z01.818 Encounter for other preprocedural examination (principal); D05.12 Intraductal carcinoma in situ of left breast; Z71.3 Dietary counseling and surveillance
CPT/HCPCS: 93306

== ENCOUNTER → 2023-10-17 | Outpatient (CLI) | payer MEDICAID ==
--- NOTE | 2023-10-17 07:32 | MM ---
Reason for Exam: Follow-up at short interval from prior study. Last screening mammogram was performed 12 month(s) ago. Patient History: Menarche at age 12. First Full-Term at age 36. Late child-bearing (after 30). Postmenopausal. Patient has history of breast feeding. Breast cancer, left, age 61. Breast cancer, left, age 62. Patient used Hormonal Contraceptives for 18 years. 01/08/2023, Lumpectomy on the Left side. 01/08/2023, Malignant MG pre op needle loc LT on the left side. 11/06/2022, Malignant MG stereo VAD BX LT on the left side. Excisional Biopsy on the Right side. Excisional Biopsy on the Left side. Excisional Biopsy on the Left side. Excisional Biopsy on the Left side. Excisional Biopsy on the Left side. 08/12/2008, Benign Core Biopsy on the right side. 05/21/2001, Benign Excisional Biopsy on the right side. Maternal cousin had breast cancer under age 50. Sister had breast cancer, age 67. Prior Study Comparison: 10/18/1995 Screening Mammogram, Unknown. 10/12/2020 Bilateral Screening Mammogram, [facility]. 10/13/2021 Bilateral Screening Mammogram, [facility]. 10/16/2022 Bilateral MG 3D screening mammo w/cad, [facility]. 10/18/2022 Bilateral MG 3D work up w/cad [facility], [facility]. Tissue Density: The breast tissue is heterogeneously dense. This may lower the sensitivity of mammography. Findings: Analyzed By CAD. Complex bilateral breast tissue. Chronic postsurgical scar right breast with scattered round calcifications which appear unchanged. New postsurgical and posttreatment changes left breast. Rounded density at the surgical site likely seroma. Groups of rounded heterogeneous calcification remain unchanged. Short interval follow-up recommended. Overall Assessment: Probably benign, BI-RAD 3 Management: Diagnostic Mammogram of the left breast in 6 months. To assess for any evolving posttreatment change. Results were given to the patient verbally at the time of exam. Patient should continue monthly self-breast exams. A clinical breast exam by your physician is recommended on an annual basis. This exam should not preclude additional follow-up of suspicious palpable abnormalities. Electronically signed and approved by: Nimisha Chance M.D. Radiologist
== END | disposition home or self-care (01) ==
LOC: RADMAMWWP 06:52
PROVIDERS: ATTEND Surgery
DX: R92.333 Mammographic heterogeneous density, bilateral breasts (principal); Z85.3 Personal history of malignant neoplasm of breast; Z78.0 Asymptomatic menopausal state; Z80.3 Family history of malignant neoplasm of breast
CPT/HCPCS: 77062; 77066

== ENCOUNTER → 2023-10-29 | Outpatient (CLI) | payer MEDICAID ==
--- NOTE | 2023-10-30 09:38 | CA ---
Transthoracic Echo Report Name: Yamilex Cervantes Age: 62 Gender: F : 1960 Exam Date: 10/29/2023 13:26 Exam Location: [facility] Ht (in): 66 Wt (lb): 200 Ordering Physician: Evgeny Thorpe MD Attending/Referring Phys: Pet Stylist Kaya Eisenberg [facility] Procedure CPT: Indications: Z01.818 Chemo Cardiac Hx: Technical Quality: Technically difficult study Contrast 1: Total Dose (mL): Contrast 2: Total Dose (mL): MEASUREMENTS (Male / Female) Normal Values 2D ECHO LV Diastolic Diameter PLAX 3.8 cm 4.2 - 5.9 / 3.9 - 5.3 cm LV Systolic Diameter PLAX 2.9 cm IVS Diastolic Thickness 1.3 cm 0.6 - 1.0 / 0.6 - 0.9 cm LVPW Diastolic Thickness 1.0 cm 0.6 - 1.0 / 0.6 - 0.9 cm LV Relative Wall Thickness 0.6 LVOT Diameter 2.0 cm LV Diastolic Volume MOD BP 66.5 cm??? 67 - 155 / 56 - 104 cm??? LV Systolic Volume MOD BP 33.1 cm??? 22 - 58 / 19 - 49 cm??? LV Ejection Fraction MOD BP 50.3 % >= 55 % LV Cardiac Index MOD BP 801.3 cm???/min???m??? LV Diastolic Volume MOD 4C 61.7 cm??? LV Systolic Volume MOD 4C 33.8 cm??? LV Ejection Fraction MOD 4C 45.1 % LV Cardiac Index MOD 4C 666.9 cm???/min???m??? LV Diastolic Length 4C 7.8 cm LV Systolic Length 4C 6.5 cm LV Diastolic Volume MOD 2C 72.1 cm??? LV Systolic Volume MOD 2C 31.1 cm??? LV Ejection Fraction MOD 2C 56.9 % LV Cardiac Index MOD 2C 983.0 cm???/min???m??? LV Diastolic Length 2C 7.8 cm LV Systolic Length 2C 6.2 cm Ascending Aorta Diameter 3.3 cm M-MODE Aortic Root Diameter MM 2.3 cm LA Systolic Diameter MM 3.6 cm LA Ao Ratio MM 1.6 AV Cusp Separation MM 1.7 cm DOPPLER AV Peak Velocity 118.7 cm/s AV Peak Gradient 5.6 mmHg AV Mean Velocity 90.4 cm/s AV Mean Gradient 3.5 mmHg AV Velocity Time Integral 33.4 cm LVOT Peak Velocity 90.4 cm/s LVOT Peak Gradient 3.3 mmHg LVOT Velocity Time Integral 24.0 cm LVOT Stroke Volume 73.5 cm??? LVOT Stroke Volume Index 36.8 ml/m??? LVOT Cardiac Index 1761.6 cm???/min???m??? AV Area Cont Eq vti 2.2 cm??? AV Area Cont Eq pk 2.3 cm??? Mitral E Point Velocity 107.0 cm/s Mitral A Point Velocity 76.7 cm/s Mitral E to A Ratio 1.4 MV Deceleration Time 193.0 ms LV E' Lateral Velocity 9.5 cm/s Mitral E to LV E' Lateral Ratio 11.3 LV E' Septal Velocity 7.9 cm/s Mitral E to LV E' Septal Ratio 13.6 TR Peak Velocity 248.4 cm/s TR Peak Gradient 24.7 mmHg Right Atrial Pressure 3.0 mmHg Pulmonary Artery Systolic Pressu 27.7 mmHg Right Ventricular Systolic Press 27.7 mmHg FINDINGS Left Ventricle Mildly increased septal wall thickness. Mildly increased posterior wall thickness. Left ventricular cavity size normal. Low normal left ventricular systolic function with no obvious regional wall motion abnormalities. Left ventricular ejection fraction is estimated at 50%. Average Global longitudinal strain estimated at -15.2%, however on visual assessment it appears to be underestimated. Right Ventricle Normal right ventricular size. Right Atrium Normal right atrial size. Left Atrium Normal left atrial size. Mitral Valve Structurally normal mitral valve. Mild mitral regurgitation. Aortic Valve Trileaflet aortic valve. No aortic valve stenosis or regurgitation. Tricuspid Valve Structurally normal tricuspid valve. Trace tricuspid regurgitation. Pulmonic Valve Pulmonic valve not well visualized. Pericardium No pericardial effusion. Aorta Normal size aortic root and proximal ascending aorta. CONCLUSIONS Technically difficult study. Left ventricular ejection fraction is estimated at 50%. no obvious regional wall motion abnormalities. Mild mitral regurgitation. Previewed by: Dr Leroy Busby (Electronically Signed) Final Date: 30 October 2023 09:38
== END | disposition home or self-care (01) ==
LOC: RADECHMAIN 13:19
PROVIDERS: ATTEND Internal Medicine
DX: Z01.818 Encounter for other preprocedural examination (principal); I34.0 Nonrheumatic mitral (valve) insufficiency; D05.12 Intraductal carcinoma in situ of left breast; Z71.3 Dietary counseling and surveillance
CPT/HCPCS: 93306

== ENCOUNTER → 2024-02-05 | Outpatient (CLI) | payer MEDICAID ==
[2024-02-05 15:25] LABS: Chol/HDL Ratio 2.69 Ratio
== END | disposition home or self-care (01) ==
LOC: LABT 08:39
PROVIDERS: ATTEND Family Medicine
DX: E78.2 Mixed hyperlipidemia (principal)
CPT/HCPCS: 36415; 80061

== ENCOUNTER → 2024-04-17 | Outpatient (CLI) | payer MEDICAID ==
--- NOTE | 2024-04-17 09:30 | MM ---
Reason for Exam: Additional evaluation requested from prior study. Last screening mammogram was performed 6 month(s) ago. Patient History: Menarche at age 12. First Full-Term at age 36. Late child-bearing (after 30). Postmenopausal. Patient has history of breast feeding. Breast cancer, left, age 61. Breast cancer, left, age 62. Previous chest radiation therapy at age 61. Previous chemotherapy at age 61. Patient used Hormonal Contraceptives for 18 years. 01/08/2023, Lumpectomy on the Left side. 01/08/2023, Malignant MG pre op needle loc LT on the left side. 11/06/2022, Malignant MG stereo VAD BX LT on the left side. Excisional Biopsy on the Right side. Excisional Biopsy on the Left side. Excisional Biopsy on the Left side. Excisional Biopsy on the Left side. Excisional Biopsy on the Left side. 08/12/2008, Benign Core Biopsy on the right side. 05/21/2001, Benign Excisional Biopsy on the right side. Maternal cousin had breast cancer under age 50. Maternal grandmother had ovarian cancer at or over age 50. Sister had breast cancer, age 67. Prior Study Comparison: 08/28/2017 Bilateral Screening Mammogram, [facility]. 08/29/2018 Bilateral Screening Mammogram, [facility]. 09/01/2019 Bilateral Screening Mammogram, [facility]. 10/12/2020 Bilateral Screening Mammogram, [facility]. 10/13/2021 Bilateral Screening Mammogram, [facility]. 10/16/2022 Bilateral MG 3D screening mammo w/cad, [facility]. 10/18/2022 Bilateral MG 3D work up w/cad [facility], [facility]. 10/17/2023 Bilateral MG 3D diag mammo w/cad [facility], [facility]. Tissue Density: Left: The breasts are heterogeneously dense, which may obscure small masses. Findings: Analyzed By CAD. Pattern is stable. There is increased density at the biopsy site, stable in appearance from prior study. This has a partially obscured margin. Underlying seroma. No significant interval change from the October 2023 exam is evident. Additional focal asymmetries are unchanged. Postlumpectomy surgical clips are present. There are scattered benign calcifications.Pattern is stable. There is increased density at the biopsy site, stable in appearance from prior study. This has a partially obscured margin. Underlying seroma could be considered. No significant interval change from the October 2023 exam is evident. Additional focal asymmetries are unchanged. Postlumpectomy surgical clips are present. There are scattered benign calcifications. Overall Assessment: Probably benign, BI-RAD 3 Management: Diagnostic Mammogram of both breasts in 6 months. A negative mammogram report should not preclude additional follow up of suspicious palpable abnormalities. Patient should continue monthly self breast exam. A clinical breast exam by your physician is recommended on an annual basis and results should be correlated with mammographic findings. Note on Karis scores and lifetime risk: 1. A Karis score greater than 3% is considered moderate risk. If this is the case, consider specialist referral to assess eligibility for a risk reducing agent. 2. If overall lifetime risk for the development of breast cancer is 20% or higher, the patient may qualify for future screening with alternating mammogram and breast MRI. Electronically signed and approved by: Venkatesh Ace D.O. Radiologis
== END | disposition home or self-care (01) ==
LOC: RADMAMWWP 08:46
PROVIDERS: ATTEND Internal Medicine
DX: R92.8 Other abnormal and inconclusive findings on diagnostic imaging of breast (principal); R92.332 Mammographic heterogeneous density, left breast; Z78.0 Asymptomatic menopausal state; Z80.3 Family history of malignant neoplasm of breast
CPT/HCPCS: 77061; 77065

== ENCOUNTER → 2024-10-20 | Outpatient (CLI) | payer BC ==
--- NOTE | 2024-10-20 07:25 | MM ---
Reason for Exam: Follow-up at short interval from prior study. Last screening mammogram was performed 12 month(s) ago. Patient History: Menarche at age 12. First Full-Term at age 36. Late child-bearing (after 30). Postmenopausal. Patient has history of breast feeding. Breast cancer, left, age 61. Breast cancer, left, age 62. Previous chest radiation therapy at age 61. Previous chemotherapy. Patient used Hormonal Contraceptives for 18 years. 01/08/2023, Lumpectomy on the Left side. 01/08/2023, Malignant MG pre op needle loc LT on the left side. 11/06/2022, Malignant MG stereo VAD BX LT on the left side. Excisional Biopsy on the Right side. Excisional Biopsy on the Left side. Excisional Biopsy on the Left side. Excisional Biopsy on the Left side. Excisional Biopsy on the Left side. 08/12/2008, Benign Core Biopsy on the right side. 05/21/2001, Benign Excisional Biopsy on the right side. 2022, Chemotherapy. 2022, Radiation Therapy on the left side. Maternal cousin had breast cancer, age 50. Maternal grandmother had ovarian cancer, age 70. Sister had breast cancer, age 67. Tissue Density: The breasts are heterogeneously dense, which may obscure small masses. Findings: Analyzed By CAD. Post excisional changes on the right. Postsurgical and post treatment changes redemonstrated on the left. Underlying circumscribed seroma suggested at the surgical site. Scattered coarse calcifications are unchanged. Areas of asymmetric density on both sides are unchanged. Ongoing short interval follow-up is recommended two years after patient's left breast cancer. No significant change from prior exams. Overall Assessment: Probably benign, BI-RAD 3 Management: Diagnostic Mammogram of the left breast in 6 months. Ongoing short interval follow-up with imaging performed for a total of 3 years to assess for any evolving posttreatment change. Results were given to the patient verbally at the time of exam. Patient should continue monthly self-breast exams. A clinical breast exam by your physician is recommended on an annual basis. This exam should not preclude additional follow-up of suspicious palpable abnormalities. [facility], , 10/20/2024 7:22 AM. Electronically signed and approved by: Nimisha Chance M.D. Radiologist
== END | disposition home or self-care (01) ==
LOC: RADMAMWWP 06:53
PROVIDERS: ATTEND Surgery
DX: R92.8 Other abnormal and inconclusive findings on diagnostic imaging of breast (principal); Z78.0 Asymptomatic menopausal state; Z85.3 Personal history of malignant neoplasm of breast; Z80.3 Family history of malignant neoplasm of breast; R92.333 Mammographic heterogeneous density, bilateral breasts; Z98.890 Other specified postprocedural states; R92.2 Inconclusive mammogram
CPT/HCPCS: 77062; 77066

== ENCOUNTER → 2025-02-18 | Outpatient (CLI) | payer BC ==
[2025-02-18 15:34] LABS: ALT 11 U/L (8-44); AST 17 U/L (13-35); Albumin 4.5 g/dL (3.8-4.9); Albumin/Globulin Ratio 2.14 Ratio (1.60-3.17); Alkaline Phosphatase 74 U/L (41-126); BUN/Creat Ratio 16.75 Ratio (12.00-20.00); Blood Urea Nitrogen 13.4 mg/dL (9.0-27.0); Calcium 9.7 mg/dL (8.7-10.3); Carbon Dioxide 25.3 mmol/L (21.6-31.8); Chloride 107 mmol/L (96-109); Chol/HDL Ratio 2.49 Ratio; Globulin 2.1 g/dL (1.6-3.3); Glucose 101 mg/dL (70-110); LDL Cholesterol,Calculated 76.1 mg/dL (0.0-131.0); Potassium 4.3 mmol/L (3.5-5.5); Sodium 142 mmol/L (135-145); Total Bilirubin 0.4 mg/dL (0.3-1.2); Total Protein 6.6 g/dL (6.2-8.2)
== END | disposition home or self-care (01) ==
LOC: LABWHC1 08:46
PROVIDERS: ATTEND Family Medicine
DX: E78.2 Mixed hyperlipidemia (principal); E78.5 Hyperlipidemia, unspecified
CPT/HCPCS: 36415; 80053; 80061

== ENCOUNTER → 2025-03-31 | Outpatient (CLI) | payer BC ==
--- NOTE | 2025-03-31 10:15 | MM ---
Reason for Exam: Follow-up at short interval from prior study. Last screening mammogram was performed 6 month(s) ago. Patient History: Menarche at age 12. First Full-Term at age 36. Late child-bearing (after 30). Postmenopausal. Patient has history of breast feeding. Breast cancer, left, age 61. Breast cancer, left, age 62. Previous chest radiation therapy at age 61. Previous chemotherapy. Patient used Hormonal Contraceptives for 18 years. 01/08/2023, Lumpectomy on the Left side. 01/08/2023, Malignant MG pre op needle loc LT on the left side. 11/06/2022, Malignant MG stereo VAD BX LT on the left side. Excisional Biopsy on the Right side. Excisional Biopsy on the Left side. Excisional Biopsy on the Left side. Excisional Biopsy on the Left side. Excisional Biopsy on the Left side. 08/12/2008, Benign Core Biopsy on the right side. 05/21/2001, Benign Excisional Biopsy on the right side. 2022, Chemotherapy. 2022, Radiation Therapy on the left side. Maternal cousin had breast cancer, age 50. Maternal grandmother had ovarian cancer, age 70. Sister had breast cancer, age 67. Tissue Density: Left: The breasts are heterogeneously dense, which may obscure small masses. Findings: Analyzed By CAD. Postsurgical and posttreatment changes left breast. Areas of asymmetric density are unchanged. Scattered coarse calcifications are unchanged. No significant change. Ongoing surveillance follow-up to assess for any evolving posttreatment change. Overall Assessment: Probably benign, BI-RAD 3 Management: Diagnostic Mammogram of both breasts in 6 months. Ongoing follow-up left breast following treatment for breast cancer. Annual exam of the right breast. Results were given to the patient verbally at the time of exam. Patient should continue monthly self-breast exams. A clinical breast exam by your physician is recommended on an annual basis. This exam should not preclude additional follow-up of suspicious palpable abnormalities. [facility], , 03/31/2025 10:13 AM. Electronically signed and approved by: Nimisha Chance M.D. Radiologist
== END | disposition home or self-care (01) ==
LOC: RADMAMWWP 09:45
PROVIDERS: ATTEND Surgery
DX: R92.8 Other abnormal and inconclusive findings on diagnostic imaging of breast (principal); R92.332 Mammographic heterogeneous density, left breast; Z78.0 Asymptomatic menopausal state; Z80.3 Family history of malignant neoplasm of breast; Z85.3 Personal history of malignant neoplasm of breast
CPT/HCPCS: 77061; 77065